=== PATIENT | male | born 1970 | race Two or more races ===

== ENCOUNTER 2024-09-16 22:09 | Emergency (ER) | payer OTHER, SELFPAY ==
[2024-09-16 22:09] VITALS: BP 161/107; PULSE 96; RESP 16; TEMP 36.1; O2SAT 99; BMI 23.3
--- NOTE | 2024-09-16 22:15 | EKG12_ITS ---
Test Reason : CP Blood Pressure : */* mmHG Vent. Rate : 86 BPM Atrial Rate : 86 BPM P-R Int : 170 ms QRS Dur : 98 ms QT Int : 348 ms P-R-T Axes : 64 77 29 degrees QTcB Int : 416 ms Normal sinus rhythm Normal ECG Confirmed by YOGI STORM, EL ([id number]), editorial project manager SANTOS CHAMPION ([id number]) on 09/17/2024 11:28:27 AM Referred By: BB Confirmed By: EL CALIX MD
[2024-09-16 23:09] VITALS: BP 132/96; PULSE 74; RESP 16; O2SAT 98
[2024-09-16 23:12] VITALS: O2SAT 98
--- NOTE | 2024-09-16 23:38 | RAD_ITS ---
PROCEDURE: CHEST 1 VIEW (PORTABLE) 09/16/2024 REASON FOR EXAM: CHEST PAIN TECHNIQUE: Frontal view of the chest. COMPARISON: None FINDINGS: Hardware: None Heart: The heart size is normal. Lungs: No focal consolidation or pleural effusion. Bones: Unremarkable RAD/Chest 1 View (Portable) IMPRESSION: No acute cardiopulmonary abnormality. Reading Location: [id number]
[2024-09-16] MEDS: Hyoscyamine Sulfate 0.125 MG Tablet 0.25 MG SL (23:52)
[2024-09-16] MEDS: Mag Hydrox/Al Hydrox/Simeth 30 ML UDC PO (23:53)
[2024-09-16] MEDS: Lidocaine 2% Viscous15 ML UDC 15 ML PO (23:53)
[2024-09-17] VITALS (12 sets, daily range): BP systolic 92–128; BP diastolic 72–92; PULSE 53–65; RESP 13–16; TEMP 36.8; O2SAT 91–99
[2024-09-17 00:20] LABS: Absolute Neutrophil Count 2.7 X10^3/uL (2.0-7.7); Basophil# 0.05 X10^3/uL; Eosinophil# 0.06 X10^3/uL; Eosinophils% 1.2 % (0-5); Hematocrit 46.1 % (40-54); Hemoglobin 15.6 g/dL (13.0-16.5); Lymphocyte % 32.6 % (19-41); Mean Corp Hgb Conc 33.8 g/dL (32-36); Mean Corpuscular Volume 82.8 fL (80-94); Mean Platelet Vol. 9.7 fl (6.2-12.0); Monocyte# 0.49 X10^3/uL; NRBC Flagged by Analyzer 0 % (0-5); Platelet Count 249 K/mm3 (150-450); RBC Distribution Width CV 13.6 % (11.6-14.6); RBC Distribution Width SD 40.7 fl (35.1-43.9); Red Blood Count 5.57 M/mm3 (4.6-6.2); White Blood Count 4.9 K/mm3 (4.4-11.0)
[2024-09-17 01:12] LABS: Anion Gap 8 (5-15); BUN 10 mg/dL (4-19); BUN/Creat Ratio 10.2 RATIO (10-20); Calcium,Total 9.8 mg/dL (7.6-11.0); Carbon Dioxide 27.8 mmol/L (21.0-32.0); Chloride 105 mmol/L (98-108); Creatinine, Serum 1.01 mg/dL (0.70-1.20); EST Glomerular Filtration Rate 89 (>60); Estimated Creatinine Clearance 82.77 ml/min (50-250); Glucose 80 mg/dL (70-99); Potassium 4.5 mmol/L (3.3-5.1); Sodium Level 141 mmol/L (133-145); Troponin T High Sensitivity 8 ng/L (<=22)
[2024-09-17 03:02] LABS: Troponin T High Sens 2 HR < 6 ng/L (<=22)
--- NOTE | 2024-09-17 03:07 | EDS_ITS ---
HPI History of Present Illness Chief Complaint: Chest Pain Informant: patient and family (Niece, who prefers to translate rather than obtain manager equipment) Narrative Narrative: Patient presents late at night, had been having chest discomfort that started earlier in the afternoon and felt like his reflux, so he took his reflux medication which he only takes once or twice a month whenever he gets this, and it did not help and symptoms have progressed and now having left-sided chest discomfort and some discomfort in his left arm, from his shoulder down to about his elbow. No dyspnea, palpitations, diaphoresis, near-syncope or syncope, vomiting, or recent cough/illness. No leg pain or swelling. No cardiac history although his father had a heart attack when he was 49 or 51. CVD Risk Factors: Positive for Hypercholesterolemia and Family History 1' </=55; Negative for Hypertension, Diabetes or Smoking [facility] Medical History Tremor High cholesterol GERD (gastroesophageal reflux disease) Home Medications ?Medication ?Instructions ?Recorded ?Last Taken ?Type amitriptyline 10 mg tablet 10 mg PO DAILY 09/16/24 Unk nown History pantoprazole 40 mg tablet,delayed 40 mg PO DAILY 09/16 Unknown History release rosuvastatin 5 mg tablet (Crestor) 2.5 mg PO DAILY Unknown History Allergy/AdvReac Type Severity Reaction Status Date / Time No Known Allergies Allergy Verified 09/16/24 22:10 Social History Smoking Status: Never smoker ROS ROS ED Constitutional Constitutional ED: Denies chills or fever(s) Eyes Eyes: Denies change in vision or diplopia ENT ENT ED: Denies rhinorrhea or sore throat Cardiovascular Cardiovascular: Reports as per HPI, chest pain and radiating jaw, neck or arm pain; Denies palpitations Respiratory/Chest Respiratory/Chest: Denies cough or dyspnea Gastrointestinal Gastrointestinal: Denies abdominal pain, diarrhea, nausea or vomiting Genitourinary Genitourinary ED: Denies dysuria or hematuria Musculoskeletal Musculoskeletal: Denies back pain or neck pain Integumentary Denies abscess or rash Neurologic Neurologic: Denies headache(s), paresthesias or weakness Psychiatric Psychiatric: Denies anxiety or suicidal thoughts EXAM Physical Exam Const Vital Signs: 09/16/24 22:09 09/16/24 23:09 09/16/24 23:12 Temperature 96.9 F L Temperature Source Temporal Pulse Rate 96 74 Respiratory Rate 16 16 Respiratory Effort Blood Pressure 161/107 H 132/96 H Blood Pressure Mean 125 108 Pulse Ox 99 98 98 Oxygen Delivery Method Room Air Room Air 09/16/24 23:57 09/17/24 00:00 09/17/24 00:03 Temperature Temperature Source Pulse Rate 61 64 Respiratory Rate 15 14 Respiratory Effort Normal Non-Labored Blood Pressure Blood Pressure Mean Pulse Ox 98 Oxygen Delivery Method Room Air 09/17/24 00:09 09/17/24 00:15 09/17/24 00:30 Temperature Temperature Source Pulse Rate 60 59 L Respiratory Rate 15 15 Respiratory Effort Blood Pressure 128/92 H 116/86 H 100/74 Blood Pressure Mean 103 96 84 Pulse Ox 91 95 Oxygen Delivery Method 09/17/24 00:45 09/17/24 01:00 09/17/24 01:15 Temperature Temperature Source Pulse Rate 53 L 53 L Respiratory Rate 14 15 Respiratory Effort Blood Pressure 100/72 101/77 92/76 Blood Pressure Mean 83 86 82 Pulse Ox 96 97 Oxygen Delivery Method Room Air 09/17/24 01:30 09/17/24 02:00 Temperature Temperature Source Pulse Rate 56 L 57 L Respiratory Rate 13 15 Respiratory Effort Blood Pressure 103/73 104/82 H Blood Pressure Mean 84 89 Pulse Ox 99 94 Oxygen Delivery Method Room Air Positive well nourished and well developed Constitutional Narrative: Well-appearing in no distress General Appearance ED: well developed and NAD HEENT Reports moist mucous membranes normocephalic and atraumatic Eyes PERRL and EOMs intact bilaterally Neck full ROM and supple Resp normal respiratory effort and clear to auscultation bilaterally Cardio regular rate, regular rhythm and no murmurs GI non-tender and non-distended Auscultation: normoactive bowel sounds Palpation: soft Back/Spine no CVA tenderness General Back: other FROM Extremity normal to inspection General Extremety ED: Negative for edema, pulses abnormal or tenderness General Extremity: Negative for edema or pulses abnormal Neuro oriented x3, CN's II-XII intact bilaterally and no sensory deficits noted Sensorium / Orientation: awake and alert Motor Exam: strength 5/5 throughout Skin no rashes or lesions noted and no wounds Heart Score History: Moderately Suspicious ECG: Normal Age: >45 - <65 years Risk Factors: 1 or 2 Risk Factors Troponin: </= Normal Limit Score: 3 MDM MDM MDM Narrative Medical decision making narrative: Patient's EKG is normal, initial labs are normal as well with an initial troponin in the single digits. Although the patient does have a couple of risk factors, I think this is more likely to be esophageal referred pain rather than acute coronary syndrome. Therefore while awaiting the second troponin measurement, he was given GI cocktail along with a dose of sublingual Levsin, and on reexamination his symptoms are completely relieved and his second troponin is less than 6. Two-view chest x-ray my interpretation is normal. Patient has normal vital signs with a blood pressure 104/82. Stable for discharge home and close outpatient follow-up. Lab Data Attestation: I reviewed the patient's lab results. Labs: Laboratory Results - last 24 hr 09/16/24 09/17/24 23:51 02:00 WBC 4.9 RBC 5.57 Hgb 15.6 Hct 46.1 MCV 82.8 MCH 28.0 MCHC 33.8 RDW Std Deviation 40.7 RDW Coeff of Yennifer 13.6 Plt Count 249 MPV 9.7 Immature Gran % (Auto) 0.200 Neut % (Auto) 55.0 Lymph % (Auto) 32.6 [place] % (Auto) 10.0 Eos % (Auto) 1.2 Baso % (Auto) 1.0 Absolute Neuts (auto) 2.7 Absolute Lymphs (auto) 1.60 Nucleated RBC % 0 Sodium 141 Potassium 4.5 Chloride 105 Carbon Dioxide 27.8 Anion Gap 8 BUN 10 Creatinine 1.01 Estim Creat Clear Calc 82.77 Est GFR (MDRD) Non-Af 89 BUN/Creatinine Ratio 10.2 Glucose 80 Calcium 9.8 Troponin T High Sens 8 Troponin T Hi Sens 2 Hr < 6 Radiography Diagnostic Testing: Clinical Impression(s) from Imaging Studies Chest X-Ray 09/16/24 23:38 IMPRESSION: No acute cardiopulmonary abnormality. Reading Location: [id number] Rhythm Strip Rhythm Strip: Sinus Rhythm Rate: 85 Ectopy: None EKG Initial EKG: Attestation: I personally reviewed and interpreted this EKG as follows: Interpretation: Sinus Rhythm and No Acute Injury Pattern Comments: Nml axis & intervals; nml EKG Discharge Plan Triage Chief Complaint: Chest Pain ED Provider: Alonso Salinas Dx/Rx/DC Orders Clinical Impression: Non-cardiac chest pain Instructions: ED Chest Pain, Noncardiac Prescriptions: No Action pantoprazole 40 mg tablet,delayed release (DR/EC) 40 mg PO DAILY rosuvastatin [Crestor] 5 mg tablet 2.5 mg PO DAILY amitriptyline 10 mg tablet 10 mg PO DAILY Primary Care Provider: Thierry Kidd Referrals: Thierry Kidd MD [Primary Care Provider] - 1-2 Weeks Print Language: [place] Disposition Disposition: Home, Self Care
== END 2024-09-17 03:26 | disposition home or self-care (01) ==
PROVIDERS: Emergency Provider Emergency Medicine; PCP Internal Medicine; Visit Provider Emergency Medicine
DX: R07.89 Other chest pain (principal); E78.00 Pure hypercholesterolemia, unspecified; K21.9 Gastro-esophageal reflux disease without esophagitis; Z79.899 Other long term (current) drug therapy; Z82.49 Family history of ischemic heart disease and other diseases of the circulatory system
CPT/HCPCS: 71045; 80048; 84484; 85025; 93005; 99285; A4216